=== PATIENT | female | born 1975 | race Caucasian/White ===

== ENCOUNTER 2016-11-19 13:45 | Emergency (ER) | payer MEDICAID ==
[~2016-11-19] VITALS: Ht 162.6 cm; Wt 56.7 kg
[2016-11-19 14:40] LABS: Basophils # (auto) 0 uL; Basophils % (auto) 0.5 % (0.0-2.0); Eosinophils # (auto) 0 uL; Eosinophils % (auto) 0.7 % (0.0-7.0); Hematocrit 38.9 % (36.0-46.0); Hemoglobin 12.7 g/dL (12.2-16.2); Lymphocytes % (auto) 34.9 % (10.0-50.0); Mean Corpuscular Hemoglobin 29.1 pg (28.0-32.0); Mean Corpuscular Hgb Conc. 32.7 g/dL (32.0-36.0); Mean Corpuscular Volume 88.9 fL (80.0-100.0); Mean Platelet Volume 6.6 fL (7.4-10.4); Monocytes # (auto) 0.3 uL; Monocytes % (auto) 5.3 % (0.0-12.0); Neutrophils # (auto) 3.4 uL; Neutrophils % (auto) 58.6 % (37.0-80.0); Platelet Count (auto) 318 10^3/uL (140-450); Red Cell Distribution Width 12.7 % (11.6-16.0); White Blood Cell 5.8 10^3/uL (4.4-10.8)
[2016-11-19 15:20] LABS: Albumin 4.2 g/dL (3.4-5.0); BUN/Creatinine Ratio 11.4; Bilirubin, Total 0.3 mg/dL (0.2-1.0); Calcium 9.3 mg/dL (8.5-10.1); Total Protein 8.2 g/dL (6.4-8.2)
[2016-11-19] MEDS ORDERED: KETOROLAC TROMETH 30 MG/ML 1ML VIAL IV ONE (16:30)
[2016-11-19 17:32] LABS: Urine Bilirubin Negative (Negative); Urine Blood Negative /uL (Negative); Urine Color Yellow (Yellow); Urine Glucose Normal (Normal); Urine Ketone Negative (Negative); Urine Nitrite Negative (Negative); Urine RBC 1 /hpf (0 - 4); Urine Squamous Epithelial Cell FEW /hpf (<5); Urine pH 6.5 (5.0-8.0)
[2016-11-19 18:18] VITALS: BP 133/85
== END 2016-11-19 19:24 | disposition home or self-care (01) ==
LOC: ER 13:55
DX: R10.9 Unspecified abdominal pain (principal); R33.9 Retention of urine, unspecified; E07.9 Disorder of thyroid, unspecified; Z88.1 Allergy status to other antibiotic agents; Z88.0 Allergy status to penicillin; Z90.710 Acquired absence of both cervix and uterus; Z91.041 Radiographic dye allergy status; Z87.442 Personal history of urinary calculi
CPT/HCPCS: 36415; 51702; 74176; 80053; 81001; 85025; 96374; 99285; J1885

== ENCOUNTER 2022-01-18 04:23 | Inpatient (IN) | payer MEDICAID, OTHER ==
[~2022-01-18] VITALS: Ht 165.1 cm; Wt 86.6 kg
[2022-01-18] MEDS ORDERED: dilTIAZem 25 MG/5 ML VIAL IV ONE (04:44)
[2022-01-18 05:13] LABS: Basophils # (auto) 0 10 ^3/uL (0-0.2); Basophils % (auto) 0.6 % (0.0-2.0); Eosinophils # (auto) 0 10 ^3/uL (0-0.8); Eosinophils % (auto) 0.3 % (0.0-7.0); Hematocrit 39.2 % (36.0-46.0); Hemoglobin 13.6 g/dL (12.2-16.2); Lymphocytes # (auto) 1.6 10 ^3/uL (0.4-5.4); Lymphocytes % (auto) 25.9 % (10.0-50.0); Mean Corpuscular Hemoglobin 29.2 pg (28.0-32.0); Mean Corpuscular Hgb Conc. 34.7 g/dL (32.0-36.0); Mean Corpuscular Volume 84.2 fL (80.0-100.0); Monocytes # (auto) 0.3 10 ^3/uL (0-1.3); Monocytes % (auto) 4.4 % (0.0-12.0); Neutrophils # (auto) 4.2 10 ^3/uL (1.6-8.6); Neutrophils % (auto) 68.8 % (37.0-80.0); Nucleated Red Blood Cells % 0.2 %; Red Blood Cells 4.65 10^6/uL (4.0-5.20); White Blood Cell 6.1 10^3/uL (4.4-10.8)
[2022-01-18] MEDS ORDERED: ONDANSETRON HCL 4 MG/2 ML VIAL IV ONE (05:15)
[2022-01-18] MEDS ORDERED: MORPHINE SULFATE 4 MG/ML SYR/VIAL IV ONE (05:30)
[2022-01-18 05:31] LABS: Albumin 3.8 g/dL (3.4-5.0); Anion Gap 9 (5-15); BUN/Creatinine Ratio 12.8; Blood Urea Nitrogen 11 mg/dL (7-18); Calcium 9.3 mg/dL (8.5-10.1); Carbon Dioxide 21 mmol/L (21-32); Chloride 110 mmol/L (98-107); GFR African American 92 mL/min; GFR Non-African American 76 mL/min; Glucose 117 mg/dL (74-106); Potassium 3.6 mmol/L (3.5-5.1); Sodium 140 mmol/L (136-145)
[2022-01-18 05:36] LABS: Alanine Aminotransferase 58 U/L (13-56); Alkaline Phosphatase 118 U/L (45-117); Aspartate Aminotransferase 32 U/L (15-37); Bilirubin, Total 0.3 mg/dL (0.2-1.0); Total Protein 8.6 g/dL (6.4-8.2)
[2022-01-18] MEDS ORDERED: hydrALAZINE HCL 20 MG/ML VL IV PRN (09:15)
[2022-01-18] MEDS: ONDANSETRON HCL 4 MG/2 ML VIAL IV PRN ×2 (09:34→16:07)
[2022-01-18] MEDS: ENOXAPARIN SOD 40 MG/0.4 ML SYRINGE SC SCH (09:36)
[2022-01-18] MEDS: MORPHINE SULFATE INJECTION 2 MG/ML SYRG IV PRN (09:36)
[2022-01-18 10:33] LABS: Cholesterol 229 mg/dL (< 200); HDL Cholesterol 56 mg/dL (40-59); LDL Cholesterol 160 mg/dL (< 100); Triglycerides 58 mg/dL (< 150)
[2022-01-18 11:32] LABS: Urine Bacteria NONE SEEN /hpf (None Seen); Urine Blood Negative /uL (Negative); Urine Mucus FEW (None Seen); Urine Specific Gravity 1.028 (1.001-1.035); Urine WBC 2 /hpf (0 - 5)
[2022-01-18 11:52] LABS: Alcohol, Urine < 3.0 mg/dL (0-10); Amphetamine Screen, Urine NEGATIVE (NEGATIVE); Barbiturate Scree,Urine NEGATIVE (NEGATIVE); Benzodiazephine Screen, Urine NEGATIVE (NEGATIVE); Cannabinoid Screen, Urine NEGATIVE (NEGATIVE)
[2022-01-18 12:03] LABS: Cocaine Screen, Urine NEGATIVE (NEGATIVE); Opiate Scree,Urine POSITIVE (NEGATIVE); Phencyclidine Screen, Urine NEGATIVE (NEGATIVE)
[2022-01-18] MEDS ORDERED: GABA100C9 PO (14:28)
[2022-01-18] MEDS ORDERED: LEVE500T32 PO (14:28)
[2022-01-18] MEDS ORDERED: TOPI25TA43 PO (14:28)
[2022-01-18] MEDS ORDERED: ASPI325T4 PO (14:28)
[2022-01-18] MEDS ORDERED: VERA240C2 PO (14:28)
[2022-01-18] MEDS ORDERED: SULF500T8 PO (14:29)
[2022-01-18] MEDS ORDERED: MERC50TA PO (14:29)
[2022-01-18] MEDS ORDERED: PANT1INJ3 PO (14:29)
[2022-01-18] MEDS ORDERED: QUET50TA PO (14:29)
[2022-01-18] MEDS ORDERED: DOXE10CA PO (14:29)
[2022-01-18 16:00] VITALS: BP 145/80
[2022-01-18] MEDS ORDERED: levETIRAcetam 500 MG TAB PO ONE (18:15)
[2022-01-18] MEDS ORDERED: LEVE500T3 PO (19:54)
[2022-01-18] MEDS ORDERED: TOPI200T43 PO (19:54)
[2022-01-18] MEDS ORDERED: VERA240T93 PO (19:54)
[2022-01-18 22:16] VITALS: BP 109/62
[2022-01-19 04:16] VITALS: BP 111/73
[2022-01-19 05:05] LABS: Basophils # (auto) 0 10 ^3/uL (0-0.2); Basophils % (auto) 0.7 % (0.0-2.0); Eosinophils # (auto) 0.1 10 ^3/uL (0-0.8); Eosinophils % (auto) 1.5 % (0.0-7.0); Hematocrit 33.7 % (36.0-46.0); Hemoglobin 11.7 g/dL (12.2-16.2); Lymphocytes # (auto) 1.7 10 ^3/uL (0.4-5.4); Lymphocytes % (auto) 34.6 % (10.0-50.0); Mean Corpuscular Hemoglobin 29.2 pg (28.0-32.0); Mean Corpuscular Hgb Conc. 34.7 g/dL (32.0-36.0); Mean Corpuscular Volume 84.1 fL (80.0-100.0); Monocytes # (auto) 0.4 10 ^3/uL (0-1.3); Monocytes % (auto) 8.8 % (0.0-12.0); Neutrophils # (auto) 2.7 10 ^3/uL (1.6-8.6); Neutrophils % (auto) 54.4 % (37.0-80.0); Nucleated Red Blood Cells % 0.1 %; Red Blood Cells 4.01 10^6/uL (4.0-5.20); Red Cell Distribution Width 13.5 % (11.8-14.3)
[2022-01-19 05:28] LABS: Albumin 3.3 g/dL (3.4-5.0); Calcium 8.9 mg/dL (8.5-10.1); Potassium 3.7 mmol/L (3.5-5.1)
[2022-01-19 05:30] LABS: BUN/Creatinine Ratio 14.9
[2022-01-19 05:33] LABS: Bilirubin, Total 0.5 mg/dL (0.2-1.0); Total Protein 7.4 g/dL (6.4-8.2)
[2022-01-19 09:08] VITALS: BP 108/77
[2022-01-19] MEDS: PANTOPRAZOLE 40 MG/10 ML VIAL INJ IV SCH (09:31)
[2022-01-19] MEDS: ENOXAPARIN SOD 40 MG/0.4 ML SYRINGE SC SCH (09:32)
[2022-01-19] MEDS: ONDANSETRON HCL 4 MG/2 ML VIAL IV PRN (09:33)
[2022-01-19] MEDS ORDERED: levETIRAcetam 500 MG TAB PO SCH (10:00)
[2022-01-19 13:00] VITALS: BP 128/78
[2022-01-19 17:00] VITALS: BP 122/76
[2022-01-19] MEDS: levETIRAcetam 500 MG TAB PO SCH (21:26)
[2022-01-19] MEDS: ACETAMINOPHEN 500 MG TAB PO PRN (21:27)
[2022-01-19 22:00] VITALS: BP 109/73
[2022-01-20 05:00] VITALS: BP 124/70
[2022-01-20] MEDS: ONDANSETRON HCL 4 MG/2 ML VIAL IV PRN ×2 (08:51→17:28)
[2022-01-20 09:00] VITALS: BP 111/76
[2022-01-20] MEDS: levETIRAcetam 500 MG TAB PO SCH ×2 (10:00→21:38)
[2022-01-20] MEDS: PANTOPRAZOLE 40 MG/10 ML VIAL INJ IV SCH (10:00)
[2022-01-20] MEDS: ENOXAPARIN SOD 40 MG/0.4 ML SYRINGE SC SCH (10:00)
[2022-01-20 13:00] VITALS: BP 116/82
[2022-01-20] MEDS: MORPHINE SULFATE INJECTION 2 MG/ML SYRG IV PRN (14:23)
[2022-01-20 17:00] VITALS: BP 118/74
[2022-01-20] MEDS: sulfaSALAzine 500 MG TAB PO SCH (21:38)
[2022-01-20 22:00] VITALS: BP 18/96
[2022-01-20] MEDS ORDERED: LORazepam 2MG/ML-1ML VIAL IV PRN ×2 (23:30)
[2022-01-21 05:00] VITALS: BP 108/65
[2022-01-21] MEDS: ONDANSETRON HCL 4 MG/2 ML VIAL IV PRN (08:09)
[2022-01-21] MEDS ORDERED: ADENOSINE 71 MG in GIVE UN-DILUTED 0 ML IV ONE (09:00)
[2022-01-21 09:19] VITALS: BP 135/97
[2022-01-21] MEDS: PANTOPRAZOLE 40 MG/10 ML VIAL INJ IV SCH ×2 (10:22→22:14)
[2022-01-21] MEDS: ENOXAPARIN SOD 40 MG/0.4 ML SYRINGE SC SCH (10:23)
[2022-01-21] MEDS: TOPIRAMATE 25 MG TAB PO SCH ×2 (10:23→22:14)
[2022-01-21] MEDS: sulfaSALAzine 500 MG TAB PO SCH ×2 (10:24→22:14)
[2022-01-21] MEDS: levETIRAcetam 500 MG TAB PO SCH ×2 (10:24→22:14)
[2022-01-21] MEDS: ACETAMINOPHEN 500 MG TAB PO PRN (10:33)
[2022-01-21] MEDS: ACETAMINOPHEN 325 MG TAB PO PRN (15:17)
[2022-01-21] MEDS ORDERED: OMNIPAQUE ORAL SOLN 500ml 12mg/ml PO ONE (15:45)
[2022-01-21 17:00] VITALS: BP 114/66
[2022-01-21] MEDS: SUCRALFATE 1 GM/10 ML ORAL SUSP PO SCH ×2 (17:50→22:14)
[2022-01-21 22:00] VITALS: BP 120/81
[2022-01-22 05:00] VITALS: BP 111/61
[2022-01-22 05:38] LABS: Basophils # (auto) 0 10 ^3/uL (0-0.2); Eosinophils # (auto) 0.1 10 ^3/uL (0-0.8); Eosinophils % (auto) 2.3 % (0.0-7.0); Hematocrit 35.5 % (36.0-46.0); Hemoglobin 12.4 g/dL (12.2-16.2); Lymphocytes # (auto) 1.5 10 ^3/uL (0.4-5.4); Lymphocytes % (auto) 33.9 % (10.0-50.0); Mean Corpuscular Hemoglobin 29.5 pg (28.0-32.0); Mean Corpuscular Volume 84.1 fL (80.0-100.0); Monocytes # (auto) 0.4 10 ^3/uL (0-1.3); Monocytes % (auto) 9.5 % (0.0-12.0); Neutrophils # (auto) 2.3 10 ^3/uL (1.6-8.6); Neutrophils % (auto) 53.3 % (37.0-80.0); Nucleated Red Blood Cells % 0.2 %; Red Blood Cells 4.22 10^6/uL (4.0-5.20); Red Cell Distribution Width 12.9 % (11.8-14.3); White Blood Cell 4.4 10^3/uL (4.4-10.8)
[2022-01-22] MEDS: SUCRALFATE 1 GM/10 ML ORAL SUSP PO SCH ×2 (06:27→14:07)
[2022-01-22 08:32] VITALS: BP 101/74
[2022-01-22] MEDS: PANTOPRAZOLE 40 MG/10 ML VIAL INJ IV SCH (09:29)
[2022-01-22] MEDS: sulfaSALAzine 500 MG TAB PO SCH (09:30)
[2022-01-22] MEDS: ACETAMINOPHEN 325 MG TAB PO PRN (09:30)
[2022-01-22] MEDS: levETIRAcetam 500 MG TAB PO SCH (09:31)
[2022-01-22] MEDS: ENOXAPARIN SOD 40 MG/0.4 ML SYRINGE SC SCH (09:31)
[2022-01-22] MEDS ORDERED: TOPIRAMATE 100 MG TAB PO SCH (10:00)
[2022-01-22 12:35] VITALS: BP 115/80
[2022-01-22 13:17] VITALS: BP 115/80
[2022-01-22 16:31] VITALS: BP 114/74
== END 2022-01-22 18:30 | disposition home or self-care (01) | DRG 204 ==
LOC: ER 04:23 → TELE 08:53 → TELE-CENTR 13:31
PROVIDERS: ADMIT Registered Nurse; ATTEND Internal Medicine
DX: R55 Syncope and collapse (principal); I13.0 Hypertensive heart and chronic kidney disease with heart failure and stage 1 through stage 4 chronic kidney disease, or unspecified chronic kidney disease; I50.9 Heart failure, unspecified; G40.409 Other generalized epilepsy and epileptic syndromes, not intractable, without status epilepticus; N18.2 Chronic kidney disease, stage 2 (mild); F32.A Depression, unspecified; Z20.822 Contact with and (suspected) exposure to COVID-19; D64.9 Anemia, unspecified; E03.9 Hypothyroidism, unspecified; E78.5 Hyperlipidemia, unspecified; I25.10 Atherosclerotic heart disease of native coronary artery without angina pectoris; J98.11 Atelectasis; K50.90 Crohn's disease, unspecified, without complications; Z79.899 Other long term (current) drug therapy; Z88.0 Allergy status to penicillin; Z88.8 Allergy status to other drugs, medicaments and biological substances; Z82.3 Family history of stroke; Z83.3 Family history of diabetes mellitus; Z87.442 Personal history of urinary calculi; Z90.710 Acquired absence of both cervix and uterus
CPT/HCPCS: 36415; 36600; 70450; 70551; 71045; 71250; 74176; 78452; 78582; 80053; 80061; 80185; 80307; 81001; 82542; 82805; 83036; 83880; 84443; 84484; 85025; 85379; 93005; 93017; 93306; 93886; 93970; 96372; 96374; 96375; C9113; G0378; J0153; J2405

== ENCOUNTER 2022-10-13 18:21 | Emergency (ER) | payer MEDICAID, OTHER ==
[~2022-10-13] VITALS: Ht 167.6 cm; Wt 63.8 kg
[~2022-10-13 18:21] MED LIST: ASPI325T4 PO; DOXE10CA PO; GABA100C9 PO; LEVE500T3 PO; LEVE500T32 PO; MERC50TA PO; PANT1INJ3 PO; QUET50TA PO; SULF500T8 PO; TOPI200T43 PO; TOPI25TA43 PO; VERA240C2 PO; VERA240T93 PO
[2022-10-13 18:35] VITALS: BP 166/112
[2022-10-13 19:58] LABS: Basophils # (auto) 0.1 10 ^3/uL (0-0.2); Basophils % (auto) 1.1 % (0.0-2.0); Eosinophils # (auto) 0.1 10 ^3/uL (0-0.8); Hematocrit 39.1 % (36.0-46.0); Hemoglobin 13.6 g/dL (12.2-16.2); Lymphocytes # (auto) 2.4 10 ^3/uL (0.4-5.4); Lymphocytes % (auto) 34.5 % (10.0-50.0); Mean Corpuscular Hemoglobin 29.9 pg (28.0-32.0); Mean Corpuscular Hgb Conc. 34.9 g/dL (32.0-36.0); Mean Corpuscular Volume 85.5 fL (80.0-100.0); Monocytes # (auto) 0.3 10 ^3/uL (0-1.3); Neutrophils # (auto) 4.1 10 ^3/uL (1.6-8.6); Neutrophils % (auto) 59.4 % (37.0-80.0); Nucleated Red Blood Cells % 0.2 %; Red Blood Cells 4.57 10^6/uL (4.0-5.20); Red Cell Distribution Width 13.6 % (11.8-14.3); White Blood Cell 6.9 10^3/uL (4.4-10.8)
[2022-10-13 20:02] LABS: Urine Bacteria NONE SEEN /hpf (None Seen); Urine Blood Negative /uL (Negative); Urine Mucus FEW (None Seen); Urine Specific Gravity 1.024 (1.001-1.035); Urine WBC 1 /hpf (0 - 5)
[2022-10-13 20:28] LABS: Albumin 4.1 g/dL (3.4-5.0); Calcium 8.5 mg/dL (8.5-10.1); Magnesium 2.2 mg/dL (1.6-2.6); Potassium 3.5 mmol/L (3.5-5.1)
[2022-10-13 20:32] LABS: Bilirubin, Total 0.3 mg/dL (0.2-1.0)
[2022-10-13 21:51] LABS: BUN/Creatinine Ratio 14.3
== END 2022-10-13 21:41 | disposition home or self-care (01) ==
LOC: ER 18:23
DX: R07.89 Other chest pain (principal); F41.9 Anxiety disorder, unspecified; I11.0 Hypertensive heart disease with heart failure; I50.9 Heart failure, unspecified; Z90.710 Acquired absence of both cervix and uterus; Z87.442 Personal history of urinary calculi; Z88.0 Allergy status to penicillin; Z88.1 Allergy status to other antibiotic agents; Z88.6 Allergy status to analgesic agent
CPT/HCPCS: 36415; 70450; 71046; 80053; 81001; 83735; 84484; 85025; 93005

== ENCOUNTER → 2024-09-07 | Outpatient (CLI) | payer MEDICAID ==
[~2024-09-07] MED LIST changes: -ASPI325T4 PO; +ASPI325T6 PO; +GABA-1308 PO; -GABA100C9 PO; -LEVE500T32 PO; +LEVE500T40 PO; +SULF500T57 PO; -SULF500T8 PO
[2024-09-07] MEDS: REGADENOSON 0.4 MG/5 ML SYRG IV ONE ×2 (11:13→11:38)
== END | disposition home or self-care (01) ==
LOC: XYW 09:29
PROVIDERS: ATTEND Internal Medicine
DX: R07.9 Chest pain, unspecified (principal)
CPT/HCPCS: 93017 ×2; J2785